=== PATIENT | male | born 1995 | race Caucasian/White ===

== ENCOUNTER 2020-06-03 10:18 | Emergency (ER) | payer SELFPAY ==
[2020-06-03 11:42] LABS: BASOPHIL 0.9 % (0-2); EOSINOPHIL 5.3 % (0-5); HGB 14.8 g/dl (13.2-18.0); MCHC 34.4 g/dL (32.0-36.0); MCV 95.8 fL (78.0-100.0); MONOCYTE 5.1 % (0-12); MPV 10.5 fL (6.0-9.5); NEUTROPHIL 58.5 % (41-80); NRBC 0; PLT 230 K/uL (150-400); RBC 4.49 M/uL (4.70-6.00); RDW 12.2 % (11.5-14.0); WBC 5.5 K/uL (4.0-10.5)
[2020-06-03 11:44] LABS: BILIRUBIN NEGATIVE (NEGATIVE); BLOOD NEGATIVE Ery/uL (NEGATIVE); CLARITY CLEAR (CLEAR); COLOR YELLOW (YELLOW); GLUCOSE (U) NORMAL (NORMAL); LEUKOCYTES NEGATIVE Leu/uL (NEGATIVE); NITRITE NEGATIVE (NEGATIVE); PROTEIN NEGATIVE (NEGATIVE); UROBILINOGEN 0.2 mg/dL (0.2-1.0); pH 6.5 (5.0-9.0)
[2020-06-03 11:49] LABS: ALBUMIN 4.3 g/dL (3.4-5.0); BILIRUBIN - TOTAL 0.4 mg/dL (0.2-1.0); BUN/CREAT RATIO (CALC) 19.6 RATIO; CREATININE 0.92 mg/dL (0.67-1.17); GLOBULIN (CALCULATION) 3.1 g/dL; POTASSIUM 4.6 mmol/L (3.5-5.1); TOTAL PROTEIN 7.4 g/dL (6.4-8.2)
[2020-06-03] MEDS ORDERED: FLOMAX 0.4 MG0.4 MG PO (12:17)
[2020-06-03] MEDS ORDERED: HYDROCODON-ACE1 EAC2 PO (12:17)
== END 2020-06-03 12:53 | disposition home or self-care (01) ==
LOC: FER 10:18
PROVIDERS: Emergency Medicine
DX: N23 Unspecified renal colic (principal); N13.30 Unspecified hydronephrosis; F17.210 Nicotine dependence, cigarettes, uncomplicated; Z88.1 Allergy status to other antibiotic agents
CPT/HCPCS: 36415; 80053; 81003; 85025; J1885; J2405; J7030